=== PATIENT | male | born 1960 | race Caucasian/White ===

== ENCOUNTER 2016-11-29 09:28 | Emergency (ER) | payer MEDICARE, MEDICAID ==
[2016-11-29 09:43] VITALS: BP 140/76
--- NOTE | 2016-11-29 10:17 | UC ---
Skin Complaint HPI - HPI Summary HPI Summary: Patient presents with history of HIV and stopped attending the HIV clinic in March because he states they lost his five wishes. He also states they were taking his blood and sending it to the government. He presents today with complaints of itching skin, with several open areas on his legs and arm, and now it is spreading to his trunk. He denies any new medications, if fact he has stopped taking all medications in March, any new foods, lotions, soaps or new outdoort exposure. He states he take hot steaming shower daily. He denies any blisters, painful lesion, insect bites, associated with his complaints. - History of Current Complaint Chief Complaint: UCRash Time Seen by Provider: 11/29/16 09:58 Stated Complaint: RASH Hx Obtained From: Patient Onset/Duration: Gradual Onset, Lasting Weeks Skin Exposure Onset/Duration: Weeks Ago Onset Severity: Mild Current Severity: Moderate Location: Diffuse, Other - lower anterior legs, forearms, hands. Character: Pruritus Aggravating Factor(s): Touch Alleviating Factor(s): Other - lubriderm used once Associated Signs & Symptoms: Positive: Negative - Allergy/Home Medications Allergies/Adverse Reactions: Allergies Allergy/AdvReac Type Severity Reaction Status Date / Time Fluoxetine [From Prozac] Allergy Unknown Verified 11/29/16 09:43 Reaction Details Home Medications: Home Medications NK [No Home Medications Reported] 11/29/16 [History Confirmed 11/29/16] Review of Systems Constitutional: Negative Skin: Negative, Other - l Eyes: Negative ENT: Negative Respiratory: Negative Cardiovascular: Negative Gastrointestinal: Negative Genitourinary: Negative Motor: Negative Musculoskeletal: Negative Psychological: Negative All Other Systems Reviewed And Are Negative: Yes PMH/Surg Hx/FS Hx/Imm Hx Previously Healthy: Yes Psychological History: Schizophrenia - Surgical History Surgical History: Unable to Obtain/Confirm - Family History Known Family History: Positive: None - denied CAD, HTN, DM. - Social History Alcohol Use: Rare Substance Use Type: Marijuana Smoking Status (MU): Light Every Day Tobacco Smoker Type: Cigarettes Amount Used/How Often: 1 ppd Physical Exam Triage Information Reviewed: Yes Vital Signs: Initial Vital Signs Temp 97.5 F 11/29/16 09:36 Pulse 69 11/29/16 09:36 Resp 16 11/29/16 09:36 BP 140/76 11/29/16 09:36 Pulse Ox 100 11/29/16 09:36 Eye Exam: Normal ENT Exam: Normal Dental Exam: Normal Neck exam: Normal Neck: Positive: 1 Respiratory Exam: Normal Cardiovascular Exam: Normal Abdominal Exam: Normal Musculoskeletal Exam: Normal Neurological Exam: Normal Psychological Exam: Normal Skin Exam: Other - inear excorations noted on lower anterior shins, forearms, and one area noted on coccxy, and one area noted of left upper chest. Course/Dx - Course Course Of Treatment: Patient presents with PMH of HIV and is noncompliant with his treatments and stopped taking all of his meds in . He was not gone to the HIV clinic since. I did encourage him to call and return, but based on our conversation, I dont thik he is going to do that. I feel his skin complaints are consistent with dry skin, and I also had Dr. Fink evaluate the patient and she agrees. He is going to be treated with organic skin oils half sesame/ sunflower oil applied topically daily before showering. I also referred him to [facility]. He verbalized and was agreement with the discharge plan. - Differential Diagnoses - Skin Complaint Differential Diagnoses: Other - Ichthyosis dry skin - Diagnoses Provider Diagnoses: Ichthyosis. dry skin Discharge - Discharge Plan Condition: Stable Disposition: HOME Patient Education Materials: Itchy Skin (ED) Referrals: Cuca Song MD [Primary Care Provider] - Paul Golden MD [Medical Doctor] - Additional Instructions: Apply sesame seed and sunflower oil, mix together and apply and massage into skin prior to showering daily.
== END 2016-11-29 10:18 | disposition home or self-care (01) ==
LOC: UCEAST 09:28
DX: Q80.9 Congenital ichthyosis, unspecified (principal); F17.210 Nicotine dependence, cigarettes, uncomplicated
CPT/HCPCS: 99211; G0463

== ENCOUNTER 2017-07-03 08:06 | Emergency (ER) | payer MEDICARE, MEDICAID ==
--- NOTE | 2017-07-03 09:35 | RAD ---
Indication: Right lower leg injury. 2 views of the right lower leg are reviewed. There is no fracture or dislocation. No other bone or joint abnormality is identified. Ankle mortise is intact. IMPRESSION: No fracture right lower leg is noted.
[2017-07-03 09:56] VITALS: BP 143/80
--- NOTE | 2017-07-03 11:09 | ED ---
Lower Extremity - HPI Summary HPI Summary: Patient is a 57 from male who presents emergency department for a left lower leg injury that occurred several days ago. Patient states he hit his left koenig while getting into his truck. He states areas become more painful. Walking makes symptoms worse. Rest makes symptoms better. Past medical history of HIV , currently being treated. Patient otherwise denies fever, chills, fatigue, nausea, vomiting. Patient states he's been feeling really well otherwise. Gums are mild in severity. - History of Current Complaint Chief Complaint: EDExtremityLower Stated Complaint: LT LOWER EXTREMITY PAIN Time Seen by Provider: 07/03/17 08:30 Hx Obtained From: Patient Pain Intensity: 8 Pain Scale Used: 0-10 Numeric - Allergies/Home Medications Allergies/Adverse Reactions: Allergies Allergy/AdvReac Type Severity Reaction Status Date / Time fluoxetine [From Prozac] Allergy Unknown Verified 07/03/17 08:11 Reaction Details Home Medications: Home Medications Abacavir/Dolutegravir/Lamivudi [Triumeq Tablet] 1 tab PO BEDTIME 07/03/17 [ History Confirmed 07/03/17] Multivit,Tx with Iron,Minerals [Thera-M] 1 tab PO BEDTIME 07/03/17 [History Confirmed 07/03/17] Sulfamethox/Trimethoprim DS* [Bactrim DS 800/160 TAB*] 1 tab PO BEDTIME [History Confirmed 07/03/17] PMH/Surg Hx/FS Hx/Imm Hx Previously Healthy: Yes Endocrine/Hematology History: Denies: Hx Diabetes Cardiovascular History: Denies: Hx Congestive Heart Failure, Hx Hypertension History: Denies: Hx Renal Disease Infectious Disease History: No Infectious Disease History: Reports: Hx Human Immunodeficiency Virus (HIV) - does not take Denies: Traveled Outside the [place] in Last 30 Days - Family History Known Family History: Positive: None - denied CAD, HTN, DM. - Social History Occupation: Disabled Lives: With Family Alcohol Use: None Substance Use Type: Reports: Marijuana Smoking Status (MU): Heavy Every Day Tobacco Smoker Type: Cigarettes Amount Used/How Often: 1 ppd Review of Systems Constitutional: Negative Negative: Fever, Chills Positive: Other - pain to left lower leg All Other Systems Reviewed And Are Negative: Yes Physical Exam Triage Information Reviewed: Yes Vital Signs On Initial Exam: Initial Vitals Temp Pulse Resp BP Pulse Ox 97.7 F 68 16 130/103 100 07/03/17 08:12 07/03/17 08:12 07/03/17 08:12 07/03/17 08:12 07/03/17 08:12 Vital Signs Reviewed: Yes Appearance: Positive: Well-Appearing - Patient sitting up in bed in no acute distress. Talkative. Skin: Positive: Warm, Dry Head/Face: Positive: Normal Head/Face Inspection Eyes: Positive: Normal, TREY Neck: Positive: Supple Musculoskeletal: Positive: Other - Small abrasion noted to the left anterior lower extremity. Just distal there is a small area of light erythema and increased warmth. No fluctuance or induration. Bony tenderness to the tibia. Neurological: Positive: Normal, CN Intact II-III Psychiatric: Positive: Normal Diagnostics - Vital Signs Vital Signs Temp Pulse Resp BP Pulse Ox 07/03/17 09:54 99.0 F 43 17 143/80 99 07/03/17 08:12 97.7 F 68 16 130/103 100 - Laboratory Lab Statement: Any lab studies that have been ordered have been reviewed, and results considered in the medical decision making process. Lower Extremity Course/Dx - Course Course Of Treatment: Patient presenting for left lower leg pain after hitting off of his truck a couple days ago. He is afebrile. States his last tetanus immunization was within 5 years. X-ray is negative for acute findings, reading per radiology. Patient does appear to have a very mild early cellulitis noted to left lower extremity. Will place on Keflex 4 times a day 10 days. Advised patient elevate and apply warm compresses swelling. He are he has an appointment with his family doctor for this Tuesday. To return to the ER for increased redness, swelling, fever, vomiting. Patient understands and agrees with plan. - Diagnoses Differential Diagnosis/HQI/PQRI: Positive: Fracture (Closed), Infection, Sprain , Strain Provider Diagnoses: Cellulitis, Abrasion Discharge - Sign-Out/Discharge Documenting (check all that apply): Discharge/Admit/Transfer - Discharge Plan Condition: Good Disposition: HOME Prescriptions: Cephalexin CAP* [Keflex CAP*] 500 mg PO QID #40 cap Patient Education Materials: Cellulitis (ED) Referrals: Cuca Song MD [Primary Care Provider] - Additional Instructions: Call your family doctor tomorrow to schedule a follow-up appointment in 2-3 days Take antibiotic as directed Elevate leg and apply warm compresses Tylenol for pain as directed Return to the ER for increased redness, swelling, fever, vomiting - Billing Disposition and Condition Condition: GOOD Disposition: HOME
== END 2017-07-03 09:54 | disposition home or self-care (01) ==
LOC: ED 08:06
DX: S80.812A Abrasion, left lower leg, initial encounter (principal); L03.116 Cellulitis of left lower limb; W22.8XXA Striking against or struck by other objects, initial encounter; Y92.9 Unspecified place or not applicable; F17.210 Nicotine dependence, cigarettes, uncomplicated; Z88.8 Allergy status to other drugs, medicaments and biological substances
CPT/HCPCS: 99282

== ENCOUNTER 2018-09-12 08:21 | Emergency (ER) | payer MEDICARE, MEDICAID ==
--- OUTSIDE RECORDS SUMMARY | 2018-09-12 08:27 | XMS REPORT | Continuity of Care Document ---
:1960 External Reference #:[id number] Author Name Janette Dumont Care Team Providers Name Role Phone Cuca Song MD Primary Care Physician Unavailable Payers Date Identification Numbers Payment Provider Subscriber Policy Number: [id number] Medicare Mason Reynoso PayID: [id number] [address] [place] [address] Policy Number: [id number] Medicaid Mason Reynoso Group Name: 1 1 [address] PayID: [id number] [place] [address] Social History Type Date Description Comments Sex Unknown Marital Status Single Occupation Unemployed Tobacco Use Start: Unknown Heavy tobacco smoker x 44 yrs (more than 10 cigarettes/day) Recreational Drug Use Current Drug User marijuana and meth 1-2 times per year Smoking Status Reviewed: 09/05/18 Heavy tobacco smoker x 44 yrs (more than 10 cigarettes/day) Allergies, Adverse Reactions, Alerts Active Allergies Reaction Severity Comments Date Prozac causes sleep walking 11/30/2016 Medications Active Medications SIG Qnty Indications Ordering Provider Date Ensure Plus 1 bottle twice a 1Case E44.0 Jesus D. 03/09/2018 Liquid day Padmaja Motta Sulfamethoxazole-Trime Take One Tablet 30tabs B20 Jesus D. 03/07/2018 thoprim By Mouth Daily Padmaja Motta 400-80mg Tablets Entecavir Take One Tablet 30tabs Jesus D. 12/09/2017 1mg Tablets By Mouth Daily Padmaja Motta Abacavir Take One Tablet 30tabs Jesus D. 12/09/2017 Sulfate-Lamivudine By Mouth Daily Padmaja Motta 600-300mg Tablets Prezista Take One Tablet 30tabs Jesus D. 12/09/2017 800mg Tablets By Mouth Daily Padmaja Motta Ritonavir Take One Tablet 30tabs Jesus Melgar 12/09/2017 100mg Tablets By Mouth Daily Padmaja Motta Azithromycin 2 tabs by mouth 24tabs Jesus Melgar 12/06/2017 600mg once a week Padmaja Motta Tablets Lidocaine Unknown 7-7% Cream History Medications Ensure Original 1 can twice 1Case E44.0 Jesus Melgar 03/07/2018 - Nutrition Shake daily Padmaja Motta 03/09/2018 Liquid Sulfamethoxazole/Trim 1 by mouth 30tabs B20 Jesus Melgar 11/30/2017 - ethoprim DS daily Padmaja Motta 03/07/2018 800-160mg Tablets No Active Medications Unknown 12/02/2016 - 11/30/2017 Abacavir 1 by mouth Unknown - Sulfate-Lamivudine every day Unknown 600-300mg Tablets Prezista 1 by mouth Unknown - 800mg Tablets every day Unknown Multivitamin Adults 1 by mouth Unknown - every day Unknown Tablets Loratadine 1 by mouth Unknown - 10mg Tablets every day Unknown Bactrim DS 1 by mouth Unknown - 800-160mg twice a day 12/02/2016 Tablets Norvir 1 by mouth Unknown - 100mg Tablets every day Unknown Medications Administered in Office Medication SIG Qnty Indications Ordering Provider Date [facility] pharmacy administered Unknown 06/21/2018 Injection Vital Signs Date Vital Result Comment 09/05/2018 8:28am Height 67 inches 5'7" Weight 129.38 lb Heart Rate 60 /min BP Systolic Sitting 120 mmHg BP Diastolic Sitting 64 mmHg Respiratory Rate 14 /min Body Temperature 95.6 F BMI (Body Mass Index) 20.3 kg/m2 05/02/2018 8:31am Height 67 inches 5'7" Weight 139.00 lb Heart Rate 56 /min BP Systolic Sitting 110 mmHg BP Diastolic Sitting 74 mmHg Respiratory Rate 14 /min Body Temperature 96.7 F BMI (Body Mass Index) 21.8 kg/m2 04/11/2018 8:25am Height 67 inches 5'7" Weight 131.25 lb Heart Rate 59 /min BP Systolic Sitting 138 mmHg BP Diastolic Sitting 98 mmHg Respiratory Rate 14 /min Body Temperature 97.5 F O2 % BldC Oximetry 98 % BMI (Body Mass Index) 20.6 kg/m2 03/07/2018 8:36am Height 67 inches 5'7" Weight 135.38 lb Heart Rate 58 /min BP Systolic Sitting 126 mmHg BP Diastolic Sitting 78 mmHg Respiratory Rate 14 /min Body Temperature 96.9 F BMI (Body Mass Index) 21.2 kg/m2 02/03/2018 8:31am Height 67 inches 5'7" Weight 136.00 lb Heart Rate 42 /min BP Systolic Sitting 100 mmHg BP Diastolic Sitting 56 mmHg Respiratory Rate 14 /min Body Temperature 95.6 F BMI (Body Mass Index) 21.3 kg/m2 01/03/2018 8:33am Height 67 inches 5'7" Weight 131.00 lb Heart Rate 60 /min BP Systolic Sitting 140 mmHg BP Diastolic Sitting 86 mmHg Respiratory Rate 14 /min Body Temperature 96.8 F BMI (Body Mass Index) 20.5 kg/m2 12/07/2017 10:45am Heart Rate 72 /min BP Systolic 120 mmHg BP Diastolic 70 mmHg Respiratory Rate 18 /min Body Temperature 98.7 F 11/30/2017 9:03am Height 65 inches 5'5" Weight 130.38 lb Heart Rate 52 /min BP Systolic Sitting 120 mmHg BP Diastolic Sitting 78 mmHg Respiratory Rate 14 /min Body Temperature 97.1 F BMI (Body Mass Index) 21.7 kg/m2 12/02/2016 11:09am Height 67 inches 5'7" Weight 138.00 lb Heart Rate 78 /min BP Systolic Sitting 150 mmHg BP Diastolic Sitting 90 mmHg Respiratory Rate 16 /min Body Temperature 98.1 F BMI (Body Mass Index) 21.6 kg/m2 Results Test Date Facility Test Result H/L Range Note HIV-1 Rna QNT 08/31/2018 [facility] HIV-1 Rna <20 Abnormal Undetected 1 By PCR Sli [address] (PCR) copies/[place] [address] [phone] Comp Metabolic 08/31/2018 [facility] Sodium 140 mmol/L N 135- [address] [place] [address] [phone] Potassium 4.6 mmol/L N 3.5-5.0 Chloride 109 mmol/L N 101-111 Co2 Carbon Dioxide 26 mmol/L N 22-32 Anion Gap 5 mmol/L N 2-11 Glucose 107 mg/dL High 70-100 Blood Urea Nitrogen 36 mg/dL High 6-24 Creatinine 1.25 mg/dL High 0.67-1.17 BUN/Creatinine Ratio 28.8 High 8-20 Calcium 9.2 mg/dL N 8.6-10.3 Total Protein 6.9 g/dL N 6.4-8.9 Albumin 4.0 g/dL N 3.2-5.2 Globulin 2.9 g/dL N 2-4 Albumin/Globulin Ratio 1.4 N 1-3 Total Bilirubin 0.40 mg/dL N 0.2-1.0 Alkaline Phosphatase 52 U/L N 34-104 Alt 56 U/L High 7-52 Ast 63 U/L High 13-39 Egfr Non- 59.5 >60 Egfr 72.0 >60 2 CBC Auto Diff 08/31/2018 [facility] White Blood 5.1 10^3/uL N 3.5-10.[address] [place] [address] [phone] Red Blood Count 4.04 10^6/uL Low 4.18-5.48 Hemoglobin 14.0 g/dL N 14.0-18.0 Hematocrit 40 % Low 42-52 Mean Corpuscular Volume 99 fL High 80-94 Mean Corpuscular Hemoglobin 35 pg High 27-31 Mean Corpuscular HGB Conc 35 g/dL N 31-36 Red Cell Distribution Width 15 % N 10-15 Platelet Count 192 10^3/uL N 150-450 Mean Platelet Volume 8.4 fL N 7.4-10.4 Abs Neutrophils 2.6 10^3/uL N 1.5-7.7 Abs Lymphocytes 1.6 10^3/uL N 1.0-4.8 Abs Monocytes 0.5 10^3/uL N 0-0.8 Abs Eosinophils 0.4 10^3/uL N 0-0.6 Abs Basophils 0.0 10^3/uL N 0-0.2 Abs Nucleated RBC 0.0 10^3/uL Granulocyte % 50.2 % Lymphocyte % 30.9 % Monocyte % 9.8 % Eosinophil % 8.3 % Basophil % 0.8 % Nucleated Red Blood Cells % 0.0 Laboratory 08/31/2018 [facility] Hepatitis B Dna 509 Abnormal Undetected 3 test finding [address] Quantitative IU/[place] [address] [phone] CD4/CD8 08/31/2018 [facility] Absolute CD45 1.45 0.82-2.84 T-Cell Count [address] Count [facility]/ [place] [address] L [phone] % CD3 72 % 58-86 % CD4 5 % Abnormal 32-64 % CD8 64 % Abnormal 11-40 CD3 1039 cells/L 550-2202 CD4 66 cells/L Abnormal 365-1437 CD8 925 cells/L Abnormal 117-846 4/8 H/S Ratio 0.1 Abnormal >=0.9 CD4 Reviewed By See Comment 4 CBC Auto Diff 04/26/2018 [facility] White Blood 4.8 10^3/uL N 3.5-10.[address] [place] [address] [phone] Red Blood Count 3.67 10^6/uL Low 4.00-5.40 Hemoglobin 12.4 g/dL Low 14.0-18.0 Hematocrit 37 % Low 42-52 Mean Corpuscular Volume 100 fL High 80-94 Mean Corpuscular Hemoglobin 34 pg High 27-31 Mean Corpuscular HGB Conc 34 g/dL N 31-36 Red Cell Distribution Width 14 % N 10.5-15 Platelet Count 156 10^3/uL N 150-450 Mean Platelet Volume 8.3 fL N 7.4-10.4 Abs Neutrophils 2.4 10^3/uL N 1.5-7.7 Abs Lymphocytes 1.6 10^3/uL N 1.0-4.8 Abs Monocytes 0.4 10^3/uL N 0-0.8 Abs Eosinophils 0.3 10^3/uL N 0-0.6 Abs Basophils 0 10^3/uL N 0-0.2 Abs Nucleated RBC 0 10^3/uL Granulocyte % 50.7 % Lymphocyte % 33.6 % Monocyte % 8.7 % Eosinophil % 6.0 % Basophil % 1.0 % Nucleated Red Blood Cells % 0 CD4/CD8 04/26/2018 [facility] Absolute CD45 1.52 [facility] 0.82-2.84 T-Cell Count [address] [place] [address] [phone] % CD3 74 % 58-86 % CD4 2 % Abnormal 32-64 % CD8 69 % Abnormal 11-40 CD3 1129 cells/L 550-2202 CD4 31 cells/L Abnormal 365-1437 CD8 1046 cells/L Abnormal 117-846 4/8 H/S Ratio 0.0 Abnormal >=0.9 CD4 Reviewed By See Comment 5 Comp Metabolic Panel 04/26/2018 [facility] Sodium 138 mmol/L N 135-[address] [place], [place] [id number] [phone] Potassium 4.5 mmol/L N 3.5-5.0 Chloride 107 mmol/L N 101-111 Co2 Carbon Dioxide 28 mmol/L N 22-32 Anion Gap 3 mmol/L N 2-11 Glucose 94 mg/dL N 70-100 Blood Urea Nitrogen 28 mg/dL High 6-24 Creatinine 0.97 mg/dL N 0.67-1.17 BUN/Creatinine Ratio 28.9 High 8-20 Calcium 8.7 mg/dL N 8.6-10.3 Total Protein 6.5 g/dL N 6.4-8.9 Albumin 4.0 g/dL N 3.2-5.2 Globulin 2.5 g/dL N 2-4 Albumin/Globulin Ratio 1.6 N 1-3 Total Bilirubin 0.40 mg/dL N 0.2-1.0 Alkaline Phosphatase 36 U/L N 34-104 Alt 46 U/L N 7-52 Ast 40 U/L High 13-39 Egfr Non- 80.1 >60 Egfr 96.9 >60 6 HIV-1 Rna 04/26/2018 [facility] HIV-1 Rna 33 Abnormal Undetected 7 QNT By PCR [address] (PCR) copies/mL Sli [place], [place] [id number] [phone] Laboratory 04/26/2018 [facility] Hepatitis B 5820 IU/mL Abnormal Undetected 8 test finding [address] [place] [address] Quantitative [phone] TSH (Thyroid Stim Horm) 0.99 mcIU/mL N 0.34-5.60 CD4/CD8 02/07/2018 [facility] Absolute CD45 0.99 thou/mcL 0.82-2.84 T-Cell Count [address] Count [place], [place] [address] [phone] % CD3 76 % 58-86 % CD4 2 % Abnormal 32-64 % CD8 69 % Abnormal 11-40 CD3 751 cells/L 550-2202 CD4 24 cells/L Abnormal 365-1437 CD8 687 cells/L 117-846 H/S Ratio 0.0 Abnormal >=0.9 CD4 Reviewed By See Comment 9 CBC Auto Diff 02/07/2018 [facility] White Blood 4.3 10^3/uL N 3.5-10.[address] [place] [address] [phone] Red Blood Count 3.86 10^6/uL Low 4.00-5.40 Hemoglobin 12.9 g/dL Low 14.0-18.0 Hematocrit 38 % Low 42-52 Mean Corpuscular Volume 99 fL High 80-94 Mean Corpuscular Hemoglobin 34 pg High 27-31 Mean Corpuscular HGB Conc 34 g/dL N 31-36 Red Cell Distribution Width 18 % High 10.5-15 Platelet Count 166 10^3/uL N 150-450 Mean Platelet Volume 8.1 fL N 7.4-10.4 Abs Neutrophils 2.4 10^3/uL N 1.5-7.7 Abs Lymphocytes 1.2 10^3/uL N 1.0-4.8 Abs Monocytes 0.5 10^3/uL N 0-0.8 Abs Eosinophils 0.2 10^3/uL N 0-0.6 Abs Basophils 0.1 10^3/uL N 0-0.2 Abs Nucleated RBC 0 10^3/uL Granulocyte % 55.2 % Lymphocyte % 27.4 % Monocyte % 10.5 % Eosinophil % 5.5 % Basophil % 1.4 % Nucleated Red Blood Cells % 0 Comp Metabolic Panel 02/07/2018 [facility] Sodium 140 mmol/L N 135-[address] [place] [address] [phone] Potassium 4.4 mmol/L N 3.5-5.0 Chloride 108 mmol/L N 101-111 Co2 Carbon Dioxide 27 mmol/L N 22-32 Anion Gap 5 mmol/L N 2-11 Glucose 90 mg/dL N 70-100 Blood Urea Nitrogen 30 mg/dL High 6-24 Creatinine 1.02 mg/dL N 0.67-1.17 BUN/Creatinine Ratio 29.4 High 8-20 Calcium 9.0 mg/dL N 8.6-10.3 Total Protein 6.6 g/dL N 6.4-8.9 Albumin 3.9 g/dL N 3.2-5.2 Globulin 2.7 g/dL N 2-4 Albumin/Globulin Ratio 1.4 N 1-3 Total Bilirubin 0.30 mg/dL N 0.2-1.0 Alkaline Phosphatase 39 U/L N 34-104 Alt 84 U/L High 7-52 Ast 61 U/L High 13-39 Egfr Non- 75.5 >60 Egfr 91.4 >60 10 HIV-1 Rna 02/07/2018 [facility] HIV-1 Rna 428 Abnormal Undetected 11 QNT By PCR [address] (PCR) copies/[place] [address] [phone] Laboratory 02/07/2018 [facility] Hepatitis B [address] Abnormal Undetected 12 test finding [address] Dna IU/[place] [address] Quantitative [phone] Comp 01/04/2018 [facility] Sodium 138 mmol/L N 135-[address] [place] [address] [phone] Potassium 4.7 mmol/L N 3.5-5.0 Chloride 109 mmol/L N 101-111 Co2 Carbon Dioxide 24 mmol/L N 22-32 Anion Gap 5 mmol/L N 2-11 Glucose 130 mg/dL High 70-100 Blood Urea Nitrogen 37 mg/dL High 6-24 Creatinine 1.41 mg/dL High 0.67-1.17 BUN/Creatinine Ratio 26.2 High 8-20 Calcium 9.6 mg/dL N 8.6-10.3 Total Protein 7.0 g/dL N 6.4-8.9 Albumin 3.9 g/dL N 3.2-5.2 Globulin 3.1 g/dL N 2-4 Albumin/Globulin Ratio 1.3 N 1-3 Total Bilirubin 0.30 mg/dL N 0.2-1.0 Alkaline Phosphatase 47 U/L N 34-104 Alt 52 U/L N 7-52 Ast 40 U/L High 13-39 Egfr Non- 52.0 >60 Egfr 62.9 >60 13 HIV-1 Rna 01/04/2018 [facility] HIV-1 Rna 804 Abnormal Undetected 14 QNT By PCR [address] (PCR) copies/[place] [address] [phone] Laboratory 01/04/2018 [facility] Hepatitis B [id number] Abnormal Undetected 15 test finding [address] Dna IU/[place] [address] Quantitative [phone] Fibro 12/07/2017 [facility] FibroTest 0.70 Test-Actites [address] Score t, Serum [place], [place] [address] [phone] FibroTest Stage F3 FibroTest Interpretation advanced fibrosi <SEE NOTE> 16 ActiTest Score 0.49 ActiTest Grade A1-A2 ActiTest Interpretation minimal activity 17 FibroTest-ActiTest Comment See Comment 18 [employer] Serial Number [id number] Apolipoprotein A1, S 101 mg/dL Abnormal >=120 Yhjfd-8-Kytnrphxinssv, S 491 mg/dL Abnormal 100 - 280 Haptoglobin, S 166 mg/dL 30 - 200 Alanine Aminotransferase (Alt) 58 U/L Abnormal 7-55 Gamma Glutamyltransferase GGT 28 U/L 8 - 61 Bilirubin, Total, S 0.4 mg/dL <=1.2 19 Laboratory 12/07/2017 [facility] Miscellaneous See Comment [address] [place] [address] [phone] Laboratory 12/07/2017 [facility] Miscellaneous See [address] [place] [address] t [phone] Laboratory 12/07/2017 [facility] Miscellaneous See Comment [address] [place] [address] [phone] HIV-1 Rna 11/30/2017 [facility] HIV-1 Rna [id number] Abnormal Undetected 23 QNT By PCR [address] (PCR) copies/mL i [place], [place] [address] [phone] HIV-1 11/30/2017 [facility] HIV-1 Genotype INTERP [address] [place] [address] Resistance [phone] Nucleoside RT Mutation M41L, T69A, T2 <SEE NOTE> 25 Abacavir SUSC Didanosine SC Emtricitabine SUSC Lamivudine SUSC Stavudine SC Tenofovir SC Zidovudine SC Nonnucleoside RT mutations See Comment 26 Efavirenz S[facility] Etravirine S[facility] Nevirapine S[facility] Rilpivirine SUSC Protease Mutations L10V Atazanavir w/Ritonavir SUS[facility] Darunavir w/Ritonavir SUSC Fosamprenavir w/Ritonavir SUSC Indinavir w/Ritonavir SUSC Lopinavir w/Ritonavir SUSC Nelfinavir SUSC Saquinavir w/Ritonavir SUSC Tipranavir w/Ritonavir SUSC 27 Laboratory 11/30/2017 [facility] Hepatitis Bs Positive Abnormal Negative 28 test finding [address] [place] [address] [phone] Hepatitis Be Antigen Positive Abnormal Negative 29 Hepatitis Be Antibody Negative Negative 30 Hepatitis B Dna Quantitative [id number] IU/mL Abnormal Undetected 31 GC/Chlamydia 11/30/2017 [facility] Chlamydia Negative Negative Amplified Rna [address] [place] [address] [phone] Neisseria gonorrhoeae (GC) Rna Negative Negative N Gonorrhoea Misc 11/30/2017 [facility] N. gonorrhoeae RECTUM Source Rna [address] [place] [address] [phone] Neisseria Gonorrhoeae Rna Negative Negative 32 C Trachomatis Misc 11/30/2017 [facility] C trachomatis RECTUM Source Rna [address] Source [place], [place] [address] [phone] Chlamydia trachomatis Rna Negative Negative 33 N Gonorrhoea Misc 11/30/2017 [facility] N. gonorrhoeae THROAT Source Rna [address] [place] [address] [phone] Neisseria Gonorrhoeae Rna Negative Negative 34 C Trachomatis Misc 11/30/2017 [facility] C trachomatis THROAT Source Rna [address] [place] [address] [phone] Chlamydia trachomatis Rna Negative Negative 35 CD4/CD8 11/30/2017 [facility] Absolute 0.44 Abnormal 0.82- 2.84 T-Cell [address] CD45 Count thou/[place] [address] [phone] % CD3 71 % 58-86 % CD4 1 % Abnormal 32-64 % CD8 63 % Abnormal 11-40 CD3 314 cells/L Abnormal 550-2202 CD4 4 cells/L Abnormal 365-1437 CD8 280 cells/L 117-846 H/S Ratio 0.0 Abnormal >=0.9 CD4 Reviewed By See Comment 36 Quantiferon 11/30/2017 [facility] QuantiFERON-Tb Negative Negative 37 Gold TB [address] [address] [phone] TB1 Ag minus Nil Result 0 IU/mL TB2 Ag minus Nil Result -0.01 IU/mL TB Mitogen minus Nil Result 9.60 IU/mL TB Nil Result 0.09 IU/mL 38 Hepatitis B 11/30/2017 [facility] Hepatitis B Not Immune Abnormal Immune Ernie AB Titer [address] [place] [address] [phone] Hep B Surf AB Level < 3.10 mIU/mL >12 Laboratory 11/30/2017 [facility] Hepatitis C Undetected Undetected 39 test finding [address] Rna Quant IU/[place] [address] [phone] Hepatitis B Surface Ag Reactive (Prelim <SEE NOTE> Abnormal Nonreactive 40 1 Result in log copies/mL is <1.30. HIV-1 RNA is detected, but level present is <20 copies/mL (<1.30 log copies/mL). This assay cannot accurately quantify HIV-1 RNA below this level. ADDITIONAL INFORMATION The quantification range of this assay is 20 to 10,000,000 copies/mL (1.30 log to 7.00 log copies/mL). Testing was performed using the petey HIV-1 test ([employer] with the petey 6800 System. This test has been modified from the raw shellfish preparer's instructions. Its performance characteristics were determined by [facility] in a manner consistent with CLIA requirements. This test has not been cleared or approved by the U.S. Food and Drug Administration. Test Performed by: [facility] - [facility] [address] [place] [address] 2 Because ethnic data is not always readily available, this report includes an eGFR for both -Americans and non- Americans. The National Kidney Disease Education Program (NKDEP) does not endorse the use of the MDRD equation for patients that are not between the ages of 18 and 70, are , have extremes of body size, muscle mass, or nutritional status, or are non- or non-. According to the National Kidney Foundation, irrespective of diagnosis, the stage of the disease is based on the level of kidney function: Stage Description GFR(mL/min/1.73 m(2)) 1 Kidney damage with normal or decreased GFR 90 2 Kidney damage with mild decrease in GFR 60-89 3 Moderate decrease in GFR 30-59 4 Severe decrease in GFR 15-29 5 Kidney failure <15 (or dialysis) 3 Result in log IU/mL is 2.71. ADDITIONAL INFORMATION The quantification range of this assay is 10 to 1,000,000,000 IU/mL (1.00 log to 9.00 log IU/mL). Testing was performed using the petey HBV test ([employer] with the petey 6800 System. Test Performed by: [facility] [address] [place] [address] 4 RESULT: Reviewed by: Cheo Barba M.D. ADDITIONAL INFORMATION Reference values implemented June 13, 2012. This test was developed using an analyte specific reagent. Its performance characteristics were determined by [facility] in a manner consistent with CLIA requirements. This test has not been cleared or approved by the U.S. Food and Drug Administration. Test Performed by: [facility] - [address] [address] 5 [facility] Department of Health recommends samples be tested within 30 hours of collection. This sample exceeds that cut-off. Please consider re-drawing the specimen if clinically indicated. Reviewed by: Varun Bosch M.D. ADDITIONAL INFORMATION Reference values implemented June 13, 2012. This test was developed using an analyte specific reagent. Its performance characteristics were determined by [facility] in a manner consistent with CLIA requirements. This test has not been cleared or approved by the U.S. Food and Drug Administration. Test Performed by: [facility] - [facility] [address] [place] [address] 6 Because ethnic data is not always readily available, this report includes an eGFR for both -Americans and non- Americans. The National Kidney Disease Education Program (NKDEP) does not endorse the use of the MDRD equation for patients that are not between the ages of 18 and 70, are , have extremes of body size, muscle mass, or nutritional status, or are non- or non-. According to the National Kidney Foundation, irrespective of diagnosis, the stage of the disease is based on the level of kidney function: Stage Description GFR(mL/min/1.73 m(2)) 1 Kidney damage with normal or decreased GFR 90 2 Kidney damage with mild decrease in GFR 60-89 3 Moderate decrease in GFR 30-59 4 Severe decrease in GFR 15-29 5 Kidney failure <15 (or dialysis) 7 Result in log copies/mL is 1.51. ADDITIONAL INFORMATION The quantification range of this assay is 20 to 10,000,000 copies/mL (1.30 log to 7.00 log copies/mL). Testing was performed using the petey HIV-1 test ([employer] with the petey 6800 System. This test has been modified from the raw shellfish preparer's instructions. Its performance characteristics were determined by [facility] in a manner consistent with CLIA requirements. This test has not been cleared or approved by the U.S. Food and Drug Administration. Test Performed by: [facility] - [facility] [address] [place] [address] 8 Result in log IU/mL is 3.76. ADDITIONAL INFORMATION The quantification range of this assay is 10 to 1,000,000,000 IU/mL (1.00 log to 9.00 log IU/mL). Testing was performed using the petey HBV test ([employer] with the petey [id number] System. Test Performed by: [facility] [address] [place] [address] 9 RESULT: Reviewed by: Josiah Tavares M.D. ADDITIONAL INFORMATION Reference values implemented June 13, 2012. This test was developed using an analyte specific reagent. Its performance characteristics were determined by [facility] in a manner consistent with CLIA requirements. This test has not been cleared or approved by the U.S. Food and Drug Administration. Test Performed by: [facility] - [address] [address] 10 Because ethnic data is not always readily available, this report includes an eGFR for both -Americans and non- Americans. The National Kidney Disease Education Program (NKDEP) does not endorse the use of the MDRD equation for patients that are not between the ages of 18 and 70, are , have extremes of body size, muscle mass, or nutritional status, or are non- or non-. According to the National Kidney Foundation, irrespective of diagnosis, the stage of the disease is based on the level of kidney function: Stage Description GFR(mL/min/1.73 m(2)) 1 Kidney damage with normal or decreased GFR 90 2 Kidney damage with mild decrease in GFR 60-89 3 Moderate decrease in GFR 30-59 4 Severe decrease in GFR 15-29 5 Kidney failure <15 (or dialysis) 11 Result in log copies/mL is 2.63. ADDITIONAL INFORMATION The quantification range of this assay is 20 to 10,000,000 copies/mL (1.30 log to 7.00 log copies/mL). Testing was performed using the petey HIV-1 test ([employer] with the petey 6800 System. This test has been modified from the raw shellfish preparer's instructions. Its performance characteristics were determined by [facility] in a manner consistent with CLIA requirements. This test has not been cleared or approved by the U.S. Food and Drug Administration. Test Performed by: [facility] [place] [address] 12 Result in log IU/mL is 4.82. ADDITIONAL INFORMATION The quantification range of this assay is 10 to 1,000,000,000 IU/mL (1.00 log to 9.00 log IU/mL). Testing was performed using the petey HBV test ([employer] with the petey 6800 System. Test Performed by: [facility] [place] [address] 13 Because ethnic data is not always readily available, this report includes an eGFR for both -Americans and non- Americans. The National Kidney Disease Education Program (NKDEP) does not endorse the use of the MDRD equation for patients that are not between the ages of 18 and 70, are , have extremes of body size, muscle mass, or nutritional status, or are non- or non-. According to the National Kidney Foundation, irrespective of diagnosis, the stage of the disease is based on the level of kidney function: Stage Description GFR(mL/min/1.73 m(2)) 1 Kidney damage with normal or decreased GFR 90 2 Kidney damage with mild decrease in GFR 60-89 3 Moderate decrease in GFR 30-59 4 Severe decrease in GFR 15-29 5 Kidney failure <15 (or dialysis) 14 Result in log copies/mL is 2.91. ADDITIONAL INFORMATION The quantification range of this assay is 20 to 10,000,000 copies/mL (1.30 log to 7.00 log copies/mL). Testing was performed using the petey HIV-1 test ([employer] with the petey 6800 System. This test has been modified from the raw shellfish preparer's instructions. Its performance characteristics were determined by [facility] in a manner consistent with CLIA requirements. This test has not been cleared or approved by the U.S. Food and Drug Administration. Test Performed by: [facility] [place] [address] 15 Result in log IU/mL is 6.09. ADDITIONAL INFORMATION The quantification range of this assay is 10 to 1,000,000,000 IU/mL (1.00 log to 9.00 log IU/mL). Testing was performed using the petey HBV test ([employer] with the petey 6800 System. Test Performed by: [facility] [place] [address] 16 advanced fibrosis FibroTest estimates liver fibrosis FibroTest Score Stage Interpretation 0.00-0.21 F0 no fibrosis 0.21-0.27 F0-F1 no fibrosis 0.27-0.31 F1 minimal fibrosis 0.31-0.48 F1-F2 minimal fibrosis 0.48-0.58 F2 moderate fibrosis 0.58-0.72 F3 advanced fibrosis 0.72-0.74 F3-F4 advanced fibrosis 0.74-1.00 F4 severe fibrosis (Cirrhosis) 17 minimal activity ActiTest estimates necroinflammatory activity ActiTest Score Grade Interpretation 0.00-0.17 A0 no activity 0.17-0.29 A0-A1 no activity 0.29-0.36 A1 minimal activity 0.36-0.52 A1-A2 minimal activity 0.52-0.60 A2 significant activity 0.60-0.62 A2-A3 significant activity 0.62-1.00 A3 severe activity 18 The reliability of results is dependent on compliance with the preanalytical and analytical conditions recommended by [employer]. The tests have to be deferred for: acute hemolysis, acute hepatitis, acute inflammation, extra hepatic cholestasis. The advice of a specialist should be sought for interpretation in chronic hemolysis and Gilbert's syndrome. The test interpretation is not validated in liver transplant patients. Isolated extreme values of one of the components should lead to caution in interpreting the results. In case of discordance between a biopsy result and a test, it is recommended to seek advice of a specialist. The causes of these discordances could be due to a flaw of the test or to a flaw in the biopsy: i.e. a liver biopsy has a 33% variability rate for one fibrosis stage. FibroTest is interpretable for chronic hepatitis B and C, alcoholic and non alcoholic steatosis. ActiTest is interpretable for chronic hepatitis B and C. ADDITIONAL INFORMATION This test was developed and its performance characteristics determined by [facility] in a manner consistent with CLIA requirements. This test has not been cleared or approved by the U.S. Food and Drug Administration. 19 Test Performed by: [place] [id number] 20 Test Result Flag Unit RefValue HIV-1 Genotypic SC-RT Resistance, P HIV-1 Genotypic SC-RT Drug INTERP Resistance, P Interpretation of following results: RESIST=Resistance SUSC=No evidence of resistance SC=Possible resistance Nucleos(t)sebastian RT mutations M41L, T69A, T215E Abacavir SUSC Didanosine SC Emtricitabine SUSC Lamivudine SUSC Stavudine SC Tenofovir SC Zidovudine SC Nonnucleoside RT mutations See Comment RESULT: No relevant mutations detected Efavirenz SUSC Etravirine SUSC Nevirapine SUSC Rilpivirine SUSC Protease Mutations L10V Atazanavir + Ritonavir SUSC Darunavir + Ritonavir SUSC Fosamprenavir + Ritonavir SUSC Indinavir + Ritonavir SUSC Lopinavir + Ritonavir SUSC Nelfinavir SUSC Saquinavir + Ritonavir SUSC Tipranavir + Ritonavir SUSC ADDITIONAL INFORMATION Testing was performed using a modification of the FDA-approved [employer] HIV-1 Genotyping System, version 2.0 ([employer] [place], [place]), and results were based on raw shellfish preparer's most recent FDA-approved interpretive guidelines. Results obtained by different assay methods should not be used interchangeably. This test has been modified from the raw shellfish preparer's instructions. Its performance characteristics were determined by [facility] in a manner consistent with CLIA requirements. This test has not been cleared or approved by the U.S. Food and Drug Administration. Test Performed by: [address] [address] 21 Test Result Flag Unit RefValue Phenosense HIV See Comment Testing is complete. Final report has been sent to the referring laboratory. Note: There may be a delay of up to 2 hours before report is available to view in [facility]. Test Performed by: [facility] [address] [place] [id number] 22 Test Result Flag Unit RefValue Hepatitis B Virus Genotype Hepatitis B Genotype Type D HBV Surface Antigen Not Detected Mutations HBV RT Polymerase Mutations Not Detected HBV genotype and resistance interpretation is based on the following mutations: reverse transcriptase L80I/V, I169T, V173L, L180M, A181S/T/V, T184A/C/F/I/G/S/M/L, S202C/G/I, M204I/S/V, N236T, M250I/L/V; surface antigen P120T, D144A, G145R. Interpretation is provided by [employer] software from [employer]. INTERPRETIVE INFORMATION: HBV Genotype by Sequencing Both the HBV RT polymerase and the HBsAg encoding regions are sequenced. Resistance and surface antigen mutations are reported. In addition, the major HBV genotypes are identified. Mutations in viral sub-populations below 20 percent of total may not be detected. Test developed and characteristics determined by [facility]. See Compliance Statement B: [facility]/ Performed by [facility], [address] [place], [place] [id number] [email or web address], Grayson Bermudez MD - Lab. Director Test Performed by: [facility] [address] [place] [id number] 23 Result in log copies/mL is 6.08. ADDITIONAL INFORMATION The quantification range of this assay is 20 to 10,000,000 copies/mL (1.30 log to 7.00 log copies/mL). Testing was performed using the petey HIV-1 test ([employer] with the petey 6800 System. This test has been modified from the raw shellfish preparer's instructions. Its performance characteristics were determined by [facility] in a manner consistent with CLIA requirements. This test has not been cleared or approved by the U.S. Food and Drug Administration. Test Performed by: [facility] [address] [place] [address] 24 Interpretation of following results: RESIST=Resistance SUSC=No evidence of resistance SC=Possible resistance 25 M41L, T69A, T215E 26 RESULT: No relevant mutations detected 27 ADDITIONAL INFORMATION Testing was performed using a modification of the FDA-approved [employer] HIV-1 Genotyping System, version 2.0 ([employer] [place], [place]), and results were based on raw shellfish preparer's most recent FDA-approved interpretive guidelines. Results obtained by different assay methods should not be used interchangeably. This test has been modified from the raw shellfish preparer's instructions. Its performance characteristics were determined by [facility] in a manner consistent with CLIA requirements. This test has not been cleared or approved by the U.S. Food and Drug Administration. Test Performed by: [facility] [place] [address] 28 S/CO ratio is >100 on this specimen, and confirmatory test was not required per raw shellfish preparer's instructions for use. However, such result may occasionally be false-positive. If there are discrepancies between this positive HBsAg result and results of other HBV serologic and/or molecular tests, contact the laboratory to request HBsAg confirmatory testing. Test Performed by: [place] [address] 29 If HBe antibody is positive, retesting for HBe antigen in 1 to 3 months is recommended. Test Performed by: [place] [address] 30 Test Performed by: [place] [address] 31 Result in log IU/mL is 8.87. ADDITIONAL INFORMATION The quantification range of this assay is 10 to 1,000,000,000 IU/mL (1.00 log to 9.00 log IU/mL). Testing was performed using the petey HBV test ([employer] with the petey Musations0 System. Test Performed by: [facility] [place] [address] 32 ADDITIONAL INFORMATION This report is intended for use in clinical monitoring and management of patients. It is not intended for use in medical-legal applications. This test has been modified from the raw shellfish preparer's instructions. Its performance characteristics were determined by [facility] in a manner consistent with CLIA requirements. This test has not been cleared or approved by the U.S. Food and Drug Administration. Test Performed by: [facility] - [facility] [address] [place] [address] 33 ADDITIONAL INFORMATION This report is intended for use in clinical monitoring and management of patients. It is not intended for use in medical-legal applications. This test has been modified from the raw shellfish preparer's instructions. Its performance characteristics were determined by [facility] in a manner consistent with CLIA requirements. This test has not been cleared or approved by the U.S. Food and Drug Administration. Test Performed by: [facility] - [address] [address] 34 ADDITIONAL INFORMATION This report is intended for use in clinical monitoring and management of patients. It is not intended for use in medical-legal applications. This test has been modified from the raw shellfish preparer's instructions. Its performance characteristics were determined by [facility] in a manner consistent with CLIA requirements. This test has not been cleared or approved by the U.S. Food and Drug Administration. Test Performed by: [facility] - [facility] [address] [place] [address] 35 ADDITIONAL INFORMATION This report is intended for use in clinical monitoring and management of patients. It is not intended for use in medical-legal applications. This test has been modified from the raw shellfish preparer's instructions. Its performance characteristics were determined by [facility] in a manner consistent with CLIA requirements. This test has not been cleared or approved by the U.S. Food and Drug Administration. Test Performed by: [address] [address] 36 RESULT: Reviewed by: Josiah Tavares M.D. ADDITIONAL INFORMATION Reference values implemented June 13, 2012. This test was developed using an analyte specific reagent. Its performance characteristics were determined by [facility] in a manner consistent with CLIA requirements. This test has not been cleared or approved by the U.S. Food and Drug Administration. Test Performed by: [facility] - [address] [address] 37 No interferon-gamma response to M. tuberculosis antigens was detected. Infection with M. tuberculosis is unlikely. A single negative result does not exclude infection with M. tuberculosis. In patients at high risk for M.tuberculosis infection, a second test should be considered in accordance with the 2017 ATS/IDSA/CDC Clinical Practice Guidelines for Diagnosis of Tuberculosis in Adults and Children [Lewinsohn DM et. al. Clin. Infect. Dis. 2017;64(2):111-115]. 38 Test Performed by: [facility] - [address] [address] 39 Result in log IU/mL is Undetected. ADDITIONAL INFORMATION The quantification range of this assay is 15 to 100,000,000 IU/mL (1.18 log to 8.00 log IU/mL). Testing was performed using the petey HCV test ([employer] with the petey 6800 System. Test Performed by: [facility] - [address] [address] 40 Reactive (Prelim) Initial screening has determined that additional testing is required. Specimen has been sent to the reference laboratory for confirmation testing. Procedures Date Code Description Status 12/07/2017 41730 Anoscopy Completed 11/28/2017 02119 Biopsy Skin Lesion Single Completed 12/02/2016 17874 Anoscopy Completed 10/31/2012 [id number] Colonoscopy Completed Encounters Type Date Location Provider Dx Diagnosis Office Visit 05/02/2018 [facility] Jesus Melgar B2Monster Human immunodeficiency 8:50a Infectious Padmaja Motta virus [HIV] disease Diseases B18.1 Chronic viral hepatitis B without delta-agent K74.0 Hepatic fibrosis Office Visit 04/11/2018 [facility] Jesus Melgar B20 Human immunodeficiency 8:30a For Infectious Padmaja Motta virus [HIV] disease Diseases B18.1 Chronic viral hepatitis B without delta-agent K74.0 Hepatic fibrosis E44.0 Moderate protein-calorie malnutrition R11.2 Nausea with vomiting, unspecified Office Visit 03/07/2018 [facility] Jesus Melgar B2Monster Human immunodeficiency 8:30a For Infectious Padmaja Motta virus [HIV] disease Diseases B18.1 Chronic viral hepatitis B without delta-agent E44.0 Moderate protein-calorie malnutrition K74.0 Hepatic fibrosis R11.2 Nausea with vomiting, unspecified Office Visit 02/03/2018 [facility] Jesus Melgar B20 Human immunodeficiency 8:30a For Infectious Padmaja Motta virus [HIV] disease Diseases B18.1 Chronic viral hepatitis B without delta-agent K74.0 Hepatic fibrosis Z01.00 Encounter for exam of eyes and vision w/o abnormal findings Office Visit 01/03/2018 [facility] Jesus Melgar B2Monster Human immunodeficiency 8:30a For Infectious Padmaja Motta virus [HIV] disease Diseases B18.1 Chronic viral hepatitis B without delta-agent K74.0 Hepatic fibrosis Office Visit 12/07/2017 10:45a Surgical Eric Kebede K64.4 [facility] 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 Office Visit 11/30/2017 8:50a [facility] Jesus Melgar B18.2 Chronic viral Infectious Padmaja Motta hepatitis C Diseases B20 Human immunodeficiency virus [HIV] disease Z11.3 Encntr screen for infections w sexl mode of transmiss K64.9 Unspecified hemorrhoids K64.4 Residual hemorrhoidal skin tags Office Visit 11/07/2017 9:00a [facility] Paul Golden L30.9 Dermatitis, unspecified Office Visit 12/02/2016 11:00a Surgical Naseem Mesa 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 at [facility]81/16/2019 - Ashley Jeff, NPB20 Human immunodeficiency virus [HIV] cqtzrknU57.1 Chronic viral hepatitis B without delta-qfkviO52.0 Hepatic avmkhvjuB75.899 Other terminal worker (current) drug therapyFollow up:3 hxiuxwE55.6 Tobacco abuse counseling
[2018-09-12 08:40] VITALS: BP 111/76
--- NOTE | 2018-09-12 09:38 | UC ---
Lower Extremity/Ankle HPI - HPI Summary HPI Summary: 58-year-old male comes in with a chief complaint of swelling and redness and pain of the left ankle and foot. Started 2 days ago. No known trauma. Patient is HIV positive and he is on HIV medications. Started in the left lateral ankle and foot with redness swelling and pain. It spread now to include the medial aspect of the left ankle. Pain is worse with activity and weightbearing. No fevers or chills. Pain is improved with elevation and ice. - History of Current Complaint Chief Complaint: UCLowerExtremity Stated Complaint: SWOLLEN ANKLE Time Seen by Provider: 09/12/18 09:18 Pain Intensity: 8 - Allergies/Home Medications Allergies/Adverse Reactions: Allergies Allergy/AdvReac Type Severity Reaction Status Date / Time fluoxetine [From Prozac] Allergy Unknown Verified 09/12/18 08:40 Reaction Details PMH/Surg Hx/FS Hx/Imm Hx Previously Healthy: Yes - POSITIVE HIV Other GI/ History: HX RENAL INSUFFICIENCY Other History Of: HIV - Surgical History Surgical History: Unable to Obtain/Confirm - Family History Known Family History: Positive: None - denied CAD, HTN, DM. - Social History Alcohol Use: None Substance Use Type: Marijuana Smoking Status (MU): Heavy Every Day Tobacco Smoker Type: Cigarettes Amount Used/How Often: 1 ppd Review of Systems All Other Systems Reviewed And Are Negative: Yes Constitutional: Positive: Negative Skin: Positive: Other - SEE HPI Eyes: Positive: Negative ENT: Positive: Negative Respiratory: Positive: Negative Cardiovascular: Positive: Negative Gastrointestinal: Positive: Negative Motor: Positive: Negative Neurovascular: Positive: Negative Musculoskeletal: Positive: Other: - SEE HPI Neurological: Positive: Negative Psychological: Positive: Negative Is Patient Immunocompromised?: No Physical Exam Triage Information Reviewed: Yes Appearance: Well-Appearing, Well-Nourished, Pain Distress - MILD WITH LT ANKLE/ FOOT ROM Vital Signs: Initial Vital Signs Temp 98.3 F 09/12/18 08:35 Pulse 55 09/12/18 08:35 Resp 21 09/12/18 08:35 BP 111/76 09/12/18 08:35 Pulse Ox 99 09/12/18 08:35 Vital Signs Reviewed: Yes Eye Exam: Normal Eyes: Positive: Conjunctiva Clear Neck: Positive: Supple Respiratory: Positive: No respiratory distress Musculoskeletal: Positive: Other: - The left ankle is swollen with the swelling worse on the lateral aspect. Swelling goes down into the lateral aspect of the foot. The first MTP is nontender to palpation not swollen not erythematous. Normal sensation normal capillary refill normal dorsalis pedis pulse. Achilles tendon is nontender and intact. Patient is pain with attempted range of motion of the ankle. Neurological: Positive: Alert Psychological: Positive: Age Appropriate Behavior Skin: Positive: Other - Blanching erythema lateral left foot and ankle. Lower Extremity Course/Dx - Course Course Of Treatment: Patient Name: PRAVEEN SAVAGE Medical Record#: [id number] Ordering Physician: Danilo Parks MD Acct.#: [id number] : 1960 Age: 58 Sex: M Location: [facility] Exam Date: 09/12/18832 ADM Status: REG ER Order Information: FOOT LEFT 3+ VWS Accession Number: [id number] CPT: 20371 Indication: Left foot pain. 3 views of the left foot demonstrates no fracture or dislocation. No other bone or joint abnormality is identified. IMPRESSION: No fracture of the left foot is noted. <Electronically signed by Minerva Mcguire MD in OV> 09/12/18915 Patient Name: PRAVEEN SAVAGE Medical Record#: [id number] Ordering Physician: Danilo Parks MD Acct.#: [id number] : 1960 Age: 58 Sex: M Location: [facility] Exam Date: 09/12/18832 ADM Status: REG ER Order Information: ANKLE LEFT 3+VWS Accession Number: [id number] CPT: 23277 Indication: Left ankle pain. 3 views of left ankle demonstrates no fracture or dislocation. Soft tissue swelling is noted. Ankle mortise is intact. Calcaneus and proximal tarsal bones are unremarkable. IMPRESSION: Soft tissue swelling. No fracture is noted. <Electronically signed by Minerva Mcguire MD in OV> 09/12/18 2241 I discussed the x-rays with the patient. At this time this is most likely a tendinitis however infection cannot be ruled out. Starting the patient on Keflex 500 mg by mouth 4 times a day. Gout is another possibility although the first MTP joint is not involved in the patient does not have a history of gout. Patient does have a history of renal insufficiency and therefore I'm not recommending NSAIDs. Patient reports pain with any kind of touching of the area therefore she declines an Jose C wrap or gel splint. He also declined crutches. He was given a cane here in clinic. Discussed that if this was infection and he started feeling worse and did not improve or had a fever he needs to go the emergency department for further evaluation. Patient should follow-up his primary care doctor but if not improving or worse go to the emergency department. - Differential Dx/Diagnosis Provider Diagnosis: Left ankle swelling, Swelling of left foot Discharge - Sign-Out/Discharge Documenting (check all that apply): Patient Departure All imaging exams completed and their final reports reviewed: Yes - Discharge Plan Condition: Stable Disposition: HOME Prescriptions: Cephalexin CAP* [Keflex CAP*] 500 mg PO QID #40 cap HYDROcodone/ACETAMIN 5-325 MG* [[place] 5-325 TAB*] 1 tab PO Q4H PRN #20 tab MDD 6 PRN Reason: Pain Patient Education Materials: Swollen Ankle Joint (ED) Referrals: Cuca Song MD [Primary Care Provider] - Additional Instructions: FOLLOW UP WITH YOUR DOCTOR. REST, ICE AND ELEVATE THE ANKLE AND FOOT. GO TO THE EMERGENCY DEPARTMENT IF NOT IMPROVED OR IF YOUR CONDITION WORSENS; FEVER, PAIN, YOU FEEL ILL, SPREAD OF THE SWELLING/REDNESS OR ANY QUESTIONS OR CONCERNS. - Billing Disposition and Condition Condition: STABLE Disposition: Home
== END 2018-09-12 09:45 | disposition home or self-care (01) ==
LOC: UCEAST 08:21
DX: R22.42 Localized swelling, mass and lump, left lower limb (principal); F17.210 Nicotine dependence, cigarettes, uncomplicated; Z21 Asymptomatic human immunodeficiency virus [HIV] infection status
CPT/HCPCS: 99213; G0463

== ENCOUNTER 2018-10-03 06:28 | Emergency (ER) | payer MEDICARE, MEDICAID ==
[2018-10-03] MEDS ORDERED: NS 0.9% 1000 ML** 2,000 ML IV ONE (06:59)
[2018-10-03] MEDS ORDERED: Ondansetron INJ* 2 MG/ML VIAL IV ONE (06:59)
--- NOTE | 2018-10-03 07:11 | ED ---
Complex/Multi-Sys Presentation - HPI Summary HPI Summary: 58-year-old male presents with fatigue and cough for the past week. He states started after he got the shingles vaccine. He states that since then has been feeling very off. He did have a fever. No chest pain or shortness of breath. Is a smoker. Denies any history of asthma or COPD. Denies any bowel pain. admits to difficulty urinating. He admits to nausea but no vomiting. Denies any diarrhea. No headache. No neck stiffness. - History Of Current Complaint Chief Complaint: EDUrogenitalProblems Time Seen by Provider: 10/03/18 06:47 - Allergies/Home Medications Allergies/Adverse Reactions: Allergies Allergy/AdvReac Type Severity Reaction Status Date / Time fluoxetine [From Prozac] Allergy Unknown Verified 10/03/18 06:33 Reaction Details Home Medications: Home Medications Bactrim DS 800/160 TAB* 800 mg PO DAILY 10/03/18 [History Confirmed 10/03/18] Darunavir(NF) [Prezista(NF)] 800 mg PO DAILY 10/03/18 [History Confirmed ] Entecavir 1 mg PO DAILY 10/03/18 [History Confirmed 10/03/18] Ritonavir 100 mg PO DAILY 10/03/18 [History Confirmed 10/03/18] PMH/Surg Hx/FS Hx/Imm Hx Endocrine/Hematology History: Denies: Hx Diabetes Cardiovascular History: Denies: Hx Congestive Heart Failure, Hx Hypertension History: Denies: Hx Renal Disease Infectious Disease History: Yes Infectious Disease History: Reports: Hx Human Immunodeficiency Virus (HIV) - does not take Denies: Traveled Outside the [place] in Last 30 Days - Family History Known Family History: Positive: None - denied CAD, HTN, DM. - Social History Alcohol Use: None Substance Use Type: Reports: Marijuana Smoking Status (MU): Heavy Every Day Tobacco Smoker Type: Cigarettes Amount Used/How Often: 1 ppd Review of Systems Negative: Fever Negative: Chest Pain Positive: Cough. Negative: Shortness Of Breath Positive: Abdominal Pain Positive: dysuria All Other Systems Reviewed And Are Negative: Yes Physical Exam Triage Information Reviewed: Yes Vital Signs On Initial Exam: Initial Vitals Temp Pulse Resp BP Pulse Ox 98.4 F 77 18 106/84 100 10/03/18 06:30 10/03/18 06:30 10/03/18 06:30 10/03/18 06:30 10/03/18 06:30 Vital Signs Reviewed: Yes Appearance: Positive: Well-Appearing Skin: Positive: Warm, Dry Head/Face: Positive: Normal Head/Face Inspection Eyes: Positive: Normal, Conjunctiva Clear ENT: Positive: Pharynx normal Respiratory/Lung Sounds: Positive: Clear to Auscultation, Breath Sounds Present Cardiovascular: Positive: Normal, RRR Abdomen Description: Positive: Nontender, Soft Bowel Sounds: Positive: Present Musculoskeletal: Positive: Normal Neurological: Positive: Normal Psychiatric: Positive: Normal Diagnostics - Vital Signs Vital Signs Temp Pulse Resp BP Pulse Ox 10/03/18 07:00 61 15 99 10/03/18 06:53 61 14 125/73 99 10/03/18 06:52 9 10/03/18 06:30 98.4 F 77 18 106/84 100 - Laboratory Result Diagrams: 10/03/18 07:17 10/03/18 07:17 Lab Statement: Any lab studies that have been ordered have been reviewed, and results considered in the medical decision making process. - Radiology chest Radiology Interpretation Completed By: Radiologist Summary of Radiographic Findings: IMPRESSION: HYPERINFLATION, CONSISTENT WITH COPD. NO ACTIVE CARDIOPULMONARY DISEASE. - Ultrasound No standard instances Ultrasound Interpretation Completed By: Radiologist Summary of Ultrasound Findings: IMPRESSION: 1. NO HYDRONEPHROSIS OR NEPHROLITHIASIS. 2. THE SPLEEN IS AT THE UPPER LIMITS OF NORMAL IN SIZE. Re-Evaluation - Re-Evaluation First Eval Re-Evaluation Time: 09:59 Change: Improved Comment: feels better Complex Multi-Symp Course/Dx Course Of Treatment: 58-year-old male presents with fatigue and cough for the past week. He states started after he got the shingles vaccine. He states that since then has been feeling very off. He did have a fever. No chest pain or shortness of breath. Is a smoker. Denies any history of asthma or COPD. Denies any bowel pain. admits to difficulty urinating. He admits to nausea but no vomiting. Denies any diarrhea. No headache. No neck stiffness. On exam lungs clear auscultation. Normal physical exam. Nontender abdomen. Does have tenderness over his flanks. Urine shows no infection. renal u/s normal. chest xray copd. wbc normal. LFTs consistent with previous. CRP only mildly elevated at 15. BNP elevated at this time. Will not address such as denies any shortness of breath or leg swelling. As the patient is immune compromise will place on azithromycin for bronchitis. Told to restart HIV medications. To follow up primary. Patient understands agrees with plan. - Diagnoses Differential Diagnoses/HQI/PQRI: Metabolic Abnormality, Sepsis, Urinary Tract Infection Provider Diagnoses: Bronchitis, Fatigue Discharge - Sign-Out/Discharge Documenting (check all that apply): Patient Departure Patient Received Moderate/Deep Sedation with Procedure: No - Discharge Plan Condition: Good Disposition: HOME Prescriptions: Azithromycin TAB* [Zithromax TAB (Z-GERMÁN) 250 mg #6 tabs] 250 mg PO DAILY #4 tab Patient Education Materials: Acute Bronchitis (ED) Referrals: Cuca Song MD [Primary Care Provider] - Additional Instructions: Take azithromycin once a day for 4 days restart HIV meds Drink plenty of fluids Take tyenlol or ibuprofen every 6 hours as needed for fever follow up with primary within 5 days Return to ED if develop any new or worsening symptoms - Billing Disposition and Condition Condition: GOOD Disposition: Home - Attestation Statements Provider Attestation: I was available for consult. This patient was seen by the CECILIA. The patient was not presented to, seen by, or examined by me. -Cipriano
[2018-10-03 07:32] LABS: ABS Eosinophils 0.1 10^3/ul (0-0.6); ABS Lymphocytes 0.8 10^3/ul (1.0-4.8); ABS Monocytes 0.4 10^3/ul (0-0.8); ABS Neutrophils 5.7 10^3/ul (1.5-7.7); Eosinophil % 1.5 %; Hematocrit 32 % (42-52); Hemoglobin 11.2 g/dL (14.0-18.0); Lymphocyte % 12.1 %; Mean Corpuscular HGB Conc 35 g/dL (31-36); Mean Corpuscular Hemoglobin 34 pg (27-31); Mean Corpuscular Volume 95 fL (80-94); Mean Platelet Volume 7.9 fL (7.4-10.4); Platelet Count 196 10^3/uL (150-450); Red Blood Count 3.32 10^6 /uL (4.18-5.48); Red Cell Distribution Width 14 % (10-15)
[2018-10-03 07:40] LABS: Activated Partial Thrombo Time 37.1 seconds (26.0-38.0); INR 1.09 (0.82-1.09)
[2018-10-03 07:51] LABS: BUN/Creatinine Ratio 24.2 (8-20); C Reactive Protein 16.09 mg/L (<8.01); Calcium 8.2 mg/dL (8.6-10.3); EGFR African American 98.9 (>60); EGFR Non-African American 81.7 (>60); Globulin 2.9 g/dL (2-4); Potassium 3.9 mmol/L (3.5-5.0); Total Bilirubin 0.4 mg/dL (0.2-1.0); Total Protein 5.9 g/dL (6.4-8.9)
[2018-10-03 08:28] LABS: Urine Appearance Clear; Urine Bacteria Absent (Absent); Urine Bilirubin Negative (Negative); Urine Blood Negative (Negative); Urine Color Yellow; Urine Glucose Negative (Negative); Urine Ketones Negative (Negative); Urine Nitrite Negative (Negative); Urine Protein 2+(100 mg/dL) (Negative); Urine Red Blood Cell Trace(0-2/hpf) (Absent); Urine Specific Gravity 1.011 (1.010-1.030); Urine Urobilinogen Negative (Negative); Urine White Blood Cell Trace(0-5/hpf) (Absent)
[2018-10-03] MEDS ORDERED: Azithromycin TAB* 250 MG PO ONE (09:51)
[2018-10-03 09:57] VITALS: BP 146/94
--- NOTE | 2018-10-05 06:18 | PN ---
Progress Note - Progress Note Date of Service: 10/05/18 Note: patient preliminary lyme positive. will wait for confirmatory test. if positive will treat.
--- NOTE | 2018-10-06 05:48 | PN ---
Progress Note - Progress Note Date of Service: 10/06/18 Note: confirmatory test for lyme positive. will treat with doxycycline 100mg bidx14 days. called and spoke with patient about results.
== END 2018-10-03 10:07 | disposition home or self-care (01) ==
LOC: ED 06:28
DX: J40 Bronchitis, not specified as acute or chronic (principal); R53.83 Other fatigue; F17.210 Nicotine dependence, cigarettes, uncomplicated; Z88.8 Allergy status to other drugs, medicaments and biological substances; Z79.899 Other long term (current) drug therapy; R05 Cough; R10.9 Unspecified abdominal pain; R30.0 Dysuria; Z21 Asymptomatic human immunodeficiency virus [HIV] infection status
CPT/HCPCS: 36415; 71046; 76775; 80053; 81003; 81015; 83605; 83690; 83880; 84484; 85025; 85610; 85730; 86140; 86617; 86618; 87040; 87086; 96361; 96374; 99283; A9270-GY; J2405

== ENCOUNTER 2019-05-20 09:28 | Emergency (ER) | payer MEDICARE, MEDICAID ==
--- NOTE | 2019-05-20 10:09 | ED ---
Skin Complaint - HPI Summary HPI Summary: Pt. is a 58 y.o male who presents to the ER for pruritic rash x several days. Pt. states rash started on his feet and then spread to his groin and hands. Pt. notes he has pet cats that do not go outside. Pt. states he does not live with anyone else. Otherwise denies fever, new exposures, or recent illness. Sxs are mild in severity. No current modifying factors. - History of Current Complaint Chief Complaint: EDRashSkinAbscess Time Seen by Provider: 05/20/19 09:35 Stated Complaint: RASH ALL OVER PER PT Hx Obtained From: Patient Pain Intensity: 4 - Allergy/Home Medications Allergies/Adverse Reactions: Allergies Allergy/AdvReac Type Severity Reaction Status Date / Time fluoxetine [From Prozac] Allergy Unknown Verified 05/20/19 09:32 Reaction Details Home Medications: Home Medications Abacavir/Dolutegravir/Lamivudi [Triumeq Tablet] 1 tab PO BEDTIME 07/03/17 [ History Confirmed 10/03/18] Multivit,Tx with Iron,Minerals [Thera-M] 1 tab PO BEDTIME 07/03/17 [History Confirmed 10/03/18] Azithromycin TAB* [Zithromax TAB (Z-GERMÁN) 250 mg #6 tabs] 250 mg PO DAILY #4 tab 10/03/18 [Rx] Bactrim DS 800/160 TAB* 800 mg PO DAILY 10/03/18 [History Confirmed 10/03/18] Darunavir(NF) [Prezista(NF)] 800 mg PO DAILY 10/03/18 [History Confirmed ] Entecavir 1 mg PO DAILY 10/03/18 [History Confirmed 10/03/18] Ritonavir 100 mg PO DAILY 10/03/18 [History Confirmed 10/03/18] DOXYcycline CAP(*) [DOXYcycline 100MG CAP(*)] 100 mg PO BID #28 cap 10/06/18 [Rx ] Permethrin 5% CREAM* 1 applic TOPICAL SEE INSTRUCTIONS #30 g 05/20/19 [Rx] hydrOXYzine HCL TAB* [Atarax 25 MG TAB*] 25 mg PO QID PRN #20 tab 05/20/19 [Rx] PMH/Surg Hx/FS Hx/Imm Hx Previously Healthy: Yes Endocrine/Hematology History: Denies: Hx Diabetes Cardiovascular History: Denies: Hx Congestive Heart Failure, Hx Hypertension History: Denies: Hx Renal Disease Infectious Disease History: No Infectious Disease History: Reports: Hx Human Immunodeficiency Virus (HIV) - does not take Denies: Traveled Outside the [place] in Last 30 Days - Family History Known Family History: Positive: None - denied CAD, HTN, DM., Non-Contributory - Social History Occupation: Unemployed Lives: Alone Alcohol Use: None Substance Use Type: Reports: Marijuana Smoking Status (MU): Heavy Every Day Tobacco Smoker Type: Cigarettes Amount Used/How Often: 1 ppd Review of Systems Constitutional: Negative Negative: Fever Positive: Rash All Other Systems Reviewed And Are Negative: Yes Physical Exam Triage Information Reviewed: Yes Vital Signs On Initial Exam: Initial Vitals Temp Pulse Resp BP Pulse Ox 98.6 F 67 19 174/111 99 05/20/19 09:29 05/20/19 09:29 05/20/19 09:29 05/20/19 09:29 05/20/19 09:29 Vital Signs Reviewed: Yes Appearance: Positive: Well-Appearing - Pt. sitting on bed in NAD. Talkative. Skin: Positive: Warm, Dry, Other - Encrusted areas to bilateral hands and ankles. Mild rash in bilateral groin. Head/Face: Positive: Normal Head/Face Inspection Eyes: Positive: Normal, EOMI Neck: Positive: Supple Musculoskeletal: Positive: Normal, Strength/ROM Intact Neurological: Positive: Normal, CN Intact II-III Psychiatric: Positive: Affect/Mood Appropriate Procedures - Sedation Patient Received Moderate/Deep Sedation with Procedure: No Diagnostics - Vital Signs Vital Signs Temp Pulse Resp BP Pulse Ox 05/20/19 09:29 98.6 F 67 19 174/111 99 - Laboratory Lab Statement: Any lab studies that have been ordered have been reviewed, and results considered in the medical decision making process. Course/Dx - Course Course Of Treatment: Pt. with pruritic rash to mostly to groin, ankles and hands. Most likely consistant with scabies. Will tx with permethrin cream. Pt. to wash all lines and clothes in hot, soapy water. Will f.u with pcp if rash persist and return to er if sxs change or worsen. Hydroxyzine rx for itch. Pt. understands and agrees with plan. - Differential Diagnoses - Skin Complaint Differential Diagnoses: Allergic Reaction, Cellulitis, Contact Dermatitis, Eczema, Scabies, Tinea, Urticaria - Diagnoses Provider Diagnoses: Scabies, Rash Discharge ED - Sign-Out/Discharge Documenting (check all that apply): Patient Departure - Discharge Plan Condition: Good Disposition: HOME Prescriptions: hydrOXYzine HCL TAB* [Atarax 25 MG TAB*] 25 mg PO QID PRN #20 tab PRN Reason: Itching Permethrin 5% CREAM* 1 applic TOPICAL SEE INSTRUCTIONS #30 g Patient Education Materials: Scabies (ED), Acute Rash (ED) Referrals: Cuca Song MD [Primary Care Provider] - Additional Instructions: Follow up with your PCP if rash continues Use cream as directed Hydroxyzine as directed for itching Avoid scratching Wash all clothes, bedding, sheets, towels in hot, soapy water Return to ER if symptoms change or worsen - Billing Disposition and Condition Condition: GOOD Disposition: Home
[2019-05-20 10:40] VITALS: BP 162/99
== END 2019-05-20 10:37 | disposition home or self-care (01) ==
LOC: ED 09:28
DX: B86 Scabies (principal); R21 Rash and other nonspecific skin eruption; Z79.899 Other long term (current) drug therapy; F17.210 Nicotine dependence, cigarettes, uncomplicated
CPT/HCPCS: 99282

== ENCOUNTER 2021-12-25 11:30 | Inpatient (IN) ==
[~2021-12-25 11:30] MED LIST: ENTECAVIR 1 MG PO SCH
[2021-12-25 12:02] LABS: ABS Eosinophils 0.7 10^3/ul (0-0.6); ABS Lymphocytes 1.7 10^3/ul (1.0-4.8); ABS Monocytes 0.4 10^3/ul (0-0.8); Eosinophil % 10.4 %; Hematocrit 33 % (42-52); Hemoglobin 11.4 g/dL (14.0-18.0); Lymphocyte % 25.1 %; Mean Corpuscular HGB Conc 35 g/dL (31-36); Mean Corpuscular Hemoglobin 34 pg (27-31); Mean Corpuscular Volume 99 fL (80-94); Mean Platelet Volume 8.1 fL (7.4-10.4); Platelet Count 202 10^3/uL (150-450); Red Blood Count 3.33 10^6 /uL (4.18-5.48); Red Cell Distribution Width 14 % (10-15); White Blood Count 6.8 10^3/uL (3.5-10.8)
[2021-12-25 12:10] LABS: INR 0.92 (0.89-1.11)
[2021-12-25 12:52] LABS: Albumin 4.3 g/dL (3.2-5.2); Albumin/Globulin Ratio 1.5 (1-3); Globulin 2.9 g/dL (2-4); Potassium 4.3 mmol/L (3.5-5.0); Total Bilirubin 0.5 mg/dL (0.2-1.0); Total Protein 7.2 g/dL (6.4-8.9); eGFR CKD-EPI 36.4 (>60)
[2021-12-25 13:40] LABS: High Sensitivity Troponin 1 Hr 121 pg/mL (<20)
[2021-12-25] MEDS ORDERED: Enoxaparin 40 MG/0.4 ML SYR SUBCUT SCH (15:00)
[2021-12-25 15:29] LABS: Urine Benzodiazepine Screen None Detected (None Detect); Urine Cannabinoids Screen Presumptive Positive (None Detect); Urine Opiates Screen None Detected (None Detect)
[2021-12-25] MEDS ORDERED: DOLUTEGRAVIR PO SCH (17:00)
[2021-12-25] MEDS ORDERED: ABACAVIR PO SCH (17:00)
[2021-12-25] MEDS ORDERED: LAMIVUDI PO SCH (17:00)
[2021-12-25 17:16] LABS: HDL Cholesterol 44.2 mg/dL
[2021-12-25 22:58] LABS: INR 0.92 (0.89-1.11)
[2021-12-25] MEDS: Heparin 5000 UNITS/ML 1 mL VIAL SUBCUT SCH ×2 (22:59→23:12)
[2021-12-26 04:19] VITALS: BP 168/87
[2021-12-26 06:24] LABS: ABS Eosinophils 0.8 10^3/ul (0-0.6); ABS Lymphocytes 1.3 10^3/ul (1.0-4.8); ABS Monocytes 0.5 10^3/ul (0-0.8); Eosinophil % 11.7 %; Hematocrit 34 % (42-52); Hemoglobin 11.8 g/dL (14.0-18.0); Lymphocyte % 19.6 %; Mean Corpuscular HGB Conc 35 g/dL (31-36); Mean Corpuscular Hemoglobin 35 pg (27-31); Mean Corpuscular Volume 100 fL (80-94); Mean Platelet Volume 7.9 fL (7.4-10.4); Platelet Count 191 10^3/uL (150-450); Red Blood Count 3.42 10^6 /uL (4.18-5.48); Red Cell Distribution Width 14 % (10-15); White Blood Count 6.6 10^3/uL (3.5-10.8)
[2021-12-26 06:46] LABS: Calcium 8.6 mg/dL (8.6-10.3); Potassium 4.9 mmol/L (3.5-5.0); eGFR CKD-EPI 40.7 (>60)
[2021-12-26] MEDS ORDERED: Aspirin EC 81 mg TAB.EC (enteric coated) PO SCH (09:00)
[2021-12-26] MEDS ORDERED: Sulfamethox/Trimethoprim SS TAB 400/80 mg PO SCH (09:00)
[2021-12-28] MEDS ORDERED: NS 0.9% 1000 ml BAG 1,000 ML IV SCH (07:00)
== END 2021-12-26 07:50 | disposition left against medical advice (07) | DRG 947 ==
LOC: EDHOLD 11:30 → ED 11:30 → MEDTELE 21:58
PROVIDERS: ADMIT Hospitalist; ATTEND Hospitalist